=== PATIENT | male | born 1985 | race Caucasian/White ===

== ENCOUNTER 2018-05-02 03:35 | Inpatient (IN) | payer OTHER ==
[~2018-05-02] VITALS: Ht 177.8 cm; Wt 87.0 kg
[~2018-05-02 03:35] MED LIST: BUPR1 PO; Bactrim Ds Tab1 EACH PO; CEPH500 PO; Flomax0.4 MG PO; HYDACE5 PO; HYDR1TAB94 PO; IBUP600 PO; IBUP800 PO; KETO10 PO; PROM25 PO; Percocet 5-3251 EACH PO; Tylenol With C1 EACH PO; Vibramycin100 MG PO
[2018-05-02 04:17] LABS: BASOPHILS ABSOLUTE AUTO 0.03 K/mm3 (0.00-0.23); BASOPHILS PERCENT AUTO 0 % (0-2); EOSINOPHILS ABSOLUTE AUTO 0.04 K/mm3 (0.00-0.68); EOSINOPHILS PERCENT AUTO 0 % (0-6); Hemoglobin 13.9 g/dL (13.5-17.5); IMMATURE GRAN ABSOLUTE AUTO 0.08 K/mm3 (0.00-0.10); IMMATURE GRAN PERCENT AUTO 1 % (0-1); LYMPHOCYTES ABSOLUTE AUTO 3.07 K/mm3 (0.84-5.20); LYMPHOCYTES PERCENT AUTO 22 % (21-46); MONOCYTES ABSOLUTE AUTO 0.81 K/mm3 (0.16-1.47); MONOCYTES PERCENT AUTO 6 % (4-13); Mean Corpuscular HGB 29.8 pg (26.0-34.0); Mean Corpuscular HGB Conc 33.9 g/dL (31.5-36.5); Mean Corpuscular Volume 88 fL (80-100); Mean Platelet Volume 10.9 fL (9.1-12.4); NEUTROPHILS ABSOLUTE AUTO 9.76 K/mm3 (1.96-9.15); NEUTROPHILS PERCENT AUTO 71 % (41-73); Platelet Count 155 K/mm3 (150-400); RDW Coefficient Variation 13.3 % (11.7-14.2); RDW Standard Deviation 42.6 fL (35.1-46.3); Red Blood Cell Count 4.67 M/mm3 (4.30-5.90); White Blood Cell Count 13.79 K/mm3 (4.00-11.30)
[2018-05-02 04:37] LABS: Source, Urine Clean Catch
[2018-05-02 04:40] LABS: Bilirubin, Urine Neg (Neg); Blood, Urine 2+ (Neg); Glucose Qualitative, Urine Neg (Neg); Ketones, Urine Neg (Neg); Leukocyte Esterase, Urine Neg (Neg); Nitrite, Urine Neg (Neg); Protein, Urine 2+ (Neg); Urobilinogen, Urine NORM (Normal)
[2018-05-02 04:40] LABS: Alanine Aminotransfer (ALT/SGP 98 U/L (12-78); Albumin, Blood 4.2 g/dL (3.4-5.0); Albumin/Globulin Ratio 1.2 (0.8-1.8); Alk Phos 99 U/L (50-136); Anion Gap 13 mmol/L (6-16); Aspartate Aminotrans (AST/SGOT 150 U/L (12-37); Bilirubin, Total 0.8 mg/dL (0.1-1.0); Blood Urea Nitrogen 21 mg/dL (8-24); Bun/Creatinine Ratio 23.2 (12.0-20.0); CO2, Blood 26 mmol/L (21-32); Calcium, Blood 7.9 mg/dL (8.5-10.1); Chloride, Blood 103 mmol/L (98-108); Creatinine, Blood 0.91 mg/dL (0.60-1.20); Ethanol (Alcohol), Blood, Med 125 mg/dL; Globulin, Blood 3.5 g/dL (2.2-4.0); Glomerular Filtration Rate >60 (60-); Glucose, Blood 117 mg/dL (70-99); Salicylate <1.7 mg/dL (2.8-20.0); Sodium, Blood 142 mmol/L (136-145); Total Protein, Blood 7.7 g/dL (6.4-8.2)
[2018-05-02 04:46] LABS: Acetaminophen, Random <2.0 ug/mL (10.0-30.0)
[2018-05-02 04:51] LABS: U Amphetamine Screen Not Detected; U Barbituate Screen Not Detected; U Benzodiazapine Screen Not Detected; U Buprenorphine Screen DETECTED; U Cannabinoids Screen Not Detected; U Cocaine Screen Not Detected; U Methadone Screen Not Detected; U Methamphetamine Screen Not Detected; U Opiates Screen Not Detected; U Oxycodone Screen Not Detected; U Phencyclidine Screen Not Detected; U Propoxyphene Screen Not Detected
[2018-05-02 04:52] LABS: Amorphous Light (0-Heavy); Appearance, Urine Clear (Clear); Bacteria Rare /hpf; Color, Urine Yellow (P-Yellow); Red Blood Cells, Urine 0-2 /hpf (0-2); Squamous Epithelial Cells Not Seen /hpf (Few); White Blood Cells, Urine Rare /hpf (0-5)
--- NOTE | 2018-05-02 05:00 | NUR ---
ASSUMED PT CARE AT 0445 PT ARRIVED VIA STRETCHER FROM ED WITH FLUIDS INFUSING WO AND PROPOFOL INFUSING AT 30MCG/KG. VENTILATOR SETTINGS AC 16; TV 500; FIO2 30%; PEEP 5 WITH OXYGEN SATURATIONS >100%. PT COVERED HEAD TO TOE IN A RED RASH WITH SCRATCHES AND SCRAPES TO ELBOWS, KNEES, HANDS, AND FEET. PT COVERED IN DIRT WELL FROM HEAD TO TOE. IO ACCESS TO RIGHT LEG; 20G TO RIGHT UPPER ARM; AND 18G TO LEFT UPPER ARM. TRANSFERRED PT OVER TO BED USING SLIDER SHEET, HOOKED UP TO THE MONITOR, INITIATED TAKING PICTURES OF RASH TO SKIN, AND GAVE PT A COMPLETE BED BATH. PT REMAINED SEDATED AND IN BILATERAL SOFT WRIST RESTRAINTS.
--- NOTE | 2018-05-02 05:30 | NUR ---
DR. JOHNSON AT BEDSIDE TO ASSESS PT
--- NOTE | 2018-05-02 07:15 | NUR ---
END OF SHIFT SUMMARY PT HAS REMAINED INTUBATED AND SEDATED. VENT SETTINGS REMAIN AT AC16; TV 500; FIO2 30%; PEEP 5. PROPOFOL AT 30MCG/KG; NS 125MLS/HR. IV ACCESS WAS DIFFICULT TO OBTAIN; 18G TO LEFT UPPER ARM INFILTRATED; THEREFORE, THE ONLY IV ACCESS LEFT IS IO TO RIGHT LEG; AND 20G TO RIGHT UPPER ARM. REPORTED OFF TO RN THAT PT MAY NEED ORDERS FOR PICC OR CENTRAL LINE PERIPHERALS WERE DIFFICULT TO OBTAIN ACCESS AND MULITPLE ATTEMPTS WERE MADE. LUNG SOUNDS ARE COARSE/RHONCHI NOTED T/O. NSR WITH HR 60-70'S. ABDOMEN IS MILDLY DISTENDED WITH BTX4. FERNANDEZ CATH IS PATENT AND DRAINING TO GRAVITY; ЕЛЕНА, COLORED URINE. SEE CHART FOR PICTURES R/T SKIN INTEGRITY. PT IS SEDATED AND QUIET AT THIS TIME. NO SIGNS OF ACUTE DISTRESS OR DISCOMFORT.
--- NOTE | 2018-05-02 07:30 | NUR ---
ASSUMED CARE: REPORT RECEIVED FROM JASMYN Baird RN. ASSUMED CARE OF THIS PT AT APPROX 0700. UPON ENTERING THE ROOOM, THE PT IS RESTING QUIETLY, BILAT SOFT WRIST RESTRAINTS IN PLACE. DURING ASSESSMENT, THE PT BECAME INCREASINGLY MORE AGITATED. HE WAS PULLING ON RESTRAINTS & ATTEMPTING TO "COUGH OUT" HIS ETT. SEDATION INCREASED DOCUMENTED IN FLOWSHEET. PT IS NOW RESTING QUIETLY. WILL CONTINUE TO MONITOR & UPDATE NEEDED.
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
--- NOTE | 2018-05-02 10:00 | NUR ---
IV ACCESS UPDATE: POWERGLIDE PLACED AT 0945 BY DESMOND Bullard RN. IO TO RLE REMOVED AT THIS TIME. WILL CONTINUE TO MONITOR & UPDATE NEEDED.
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
--- NOTE | 2018-05-02 14:51 | NUR ---
HEAD CT & WEAN TRIAL: PT TO CT W/ THIS RN, DESMOND Bullard RN & JENELLE, RT. SEDATION IS LIGHT & THE PT IS FOLLOWING ALL COMMANDS APPROPRIATELY, HE DOES NOT ATTEMPT TO REMOVE ETT & ANSWERS YES/NO QUESTIONS W/ NODS. WEAN TRIAL ATTEMPTED AT 1450. PT INITIALLY PLACED ON PS 7 W/ PEEP OF 5. HE IS NOW ON SPONTANEOUS & TOLERATING WELL W/ O2 SATS > 95% & APPROX 16-18 RESP/MIN. WILL CONTINUE TO MONITOR & UPDATE NEEDED.
--- NOTE | 2018-05-02 15:10 | NUR ---
EXTUBATION: DR. RADER IN ROOM TO SEE PT DURING WEAN TRIAL. HE STS OKAY TO EXTUBATE PT AT THIS TIME. ORDERS PLACED. EXTUBATION AT 1507. PT PRAVEEN WELL, PLACED ON 4L NC W/ O2 SATS > 95%. HE IS SITTING UP IN THE BED & ORALLY SUCTIONING W/ JOSEYUR. O2 TITRATED DOWN TO 3L NC AT 1515. PT CONINUES TO DO WELL, HIS MOTHER, JESICA, IS AT BEDSIDE & SUPPORTIVE W/ CARE. WILL CONINUE MONITOR & UPDATE NEEDED.
[2018-05-02] MEDS ORDERED: SERT50 PO (16:33)
[2018-05-02] MEDS ORDERED: Vistaril25 MG PO (16:34)
[2018-05-02] MEDS ORDERED: HYDCOR2.5C PR (16:35)
--- NOTE | 2018-05-02 16:45 | NUR ---
PT TRIED WATER/ICE CHIPS, NOW THAT HE IS EXTUBATED AND ALERT. PT DID WELL ON THIS.
--- NOTE | 2018-05-02 18:19 | NUR ---
SHIFT SUMMARY: NO ACUTE CHANGES SINCE EXTUBATION. PT CONTINUES TO DO WELL, O2 NOW AT 2L NC W/ SATS > 92%. HE HAS BEEN CALM & COOPERATIVE, & IS TEARFUL AT TIMES WHEN TRYING TO UNDERSTAND THE EVENTS PRIOR TO ADMISSION. LS ARE SLIGHTLY COARSE AT TIMES, BUT CLEARS WELL W/ COUGHING. NSR-SB NOTED ON MONITOR, HR 50-70s. WILL D/C FERNANDEZ PRIOR TO SHIFT CHANGE. PT STS RASH COVERING BODY SURFACE IS FLARE UP OF UNDERLYING PSORIASIS. EDUCATIONAL PRINT-OUT REGARDING PSORIASIS TX HAS BEEN GIVEN TO THE PT & HE IS RESPONSIVE TO THIS. HE IS TOLERATING PO INTAKE WELL & HAS HAD NO DIFFICULTY. WILL CONTINUE TO MONITOR & REPORT OFF TO ONCOMING RN.
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
[2018-05-03 04:22] LABS: BASOPHILS ABSOLUTE AUTO 0.03 K/mm3 (0.00-0.23); BASOPHILS PERCENT AUTO 1 % (0-2); EOSINOPHILS ABSOLUTE AUTO 0.06 K/mm3 (0.00-0.68); EOSINOPHILS PERCENT AUTO 1 % (0-6); Hematocrit 34.7 % (37.0-53.0); Hemoglobin 11.4 g/dL (13.5-17.5); IMMATURE GRAN ABSOLUTE AUTO 0.01 K/mm3 (0.00-0.10); IMMATURE GRAN PERCENT AUTO 0 % (0-1); LYMPHOCYTES ABSOLUTE AUTO 1.71 K/mm3 (0.84-5.20); LYMPHOCYTES PERCENT AUTO 31 % (21-46); MONOCYTES ABSOLUTE AUTO 0.37 K/mm3 (0.16-1.47); MONOCYTES PERCENT AUTO 7 % (4-13); Mean Corpuscular HGB 29.8 pg (26.0-34.0); Mean Corpuscular HGB Conc 32.9 g/dL (31.5-36.5); Mean Platelet Volume 10.6 fL (9.1-12.4); NEUTROPHILS ABSOLUTE AUTO 3.32 K/mm3 (1.96-9.15); NEUTROPHILS PERCENT AUTO 60 % (41-73); Platelet Count 78 K/mm3 (150-400); RDW Coefficient Variation 13.8 % (11.7-14.2); RDW Standard Deviation 45.9 fL (35.1-46.3); Red Blood Cell Count 3.82 M/mm3 (4.30-5.90)
[2018-05-03 04:26] LABS: Mean Corpuscular Volume 91 fL (80-100)
[2018-05-03 04:42] LABS: Anion Gap 4 mmol/L (6-16); Blood Urea Nitrogen 12 mg/dL (8-24); Bun/Creatinine Ratio 14.5 (12.0-20.0); CO2, Blood 30 mmol/L (21-32); CPK Creatine Kinase 724 U/L (39-308); Calcium, Blood 7.6 mg/dL (8.5-10.1); Chloride, Blood 107 mmol/L (98-108); Creatinine, Blood 0.83 mg/dL (0.60-1.20); Glomerular Filtration Rate >60 (60-); Glucose, Blood 88 mg/dL (70-99); Phosphorus, Blood 2.3 mg/dL (2.5-4.9); Potassium, Blood 4.1 mmol/L (3.5-5.5); Sodium, Blood 141 mmol/L (136-145)
--- NOTE | 2018-05-03 06:06 | NUR ---
END OF SHIFT SUMMARY PT HAS SLEPT T/O SHIFT. AWAKENS EASILY. ALERT AND ORIENTED; ABLE TO COMMUNICATE NEEDS AND FOLLOWS DIRECTIONS APPROPRIATELY. PT FOUND STARING AT HANDS IN THE MIDDLE OF THE NIGHT AND WAS ASKED IF HE WAS SEEING THINGS; PT DENIED AND STATED HE JUST FELT "OUT OF IT". PT WAS ASKED HOW MUCH ALCOHOL HE CONSUMES ON A REGULAR BASIS; CLAIMS HE HASN'T DRANK IN A REALLY LONG TIME BEFORE THE OTHER NIGHT. PT WAS ALSO ASKED IF THE SUBOXONE THAT HE INGESTED WAS PRESCRIBED TO HIM AND HE STATED, "NO". VISIBLE TREMORS/SHAKINESS OBSERVED T/O SHIFT; VERY WEAK IN GENERAL, BUT ABLE TO REPOSITION SELF IN BED APPROPRIATELY. PT HAS REMAINED AFEBRILE T/O SHIFT WITH STABLE VS. HOWEVER, HE HAS BEEN IN AND OUT OF BRADYCARDIA TO NSR WITH A SINUS PAUSE NOTED AT 0545 THIS AM THAT RESUMED BACK INTO IT'S REGULAR RHYTHM; ASYMPTOMATIC. WHEN AWAKE HR WILL INCREASE TO 60'S-70'S; AND WHILE SLEEPING IT WILL REMAIN AROUND 50 WITH THE LOWEST HR BEING NOTED AT 44 THIS SHIFT. PT HAS REMAINED PLEASANT AND COOPERATIVE WITH CARE. VERY DROWSY. VOIDED X1 USING URINAL. DARK, YELLOW IN COLOR WITH A TOTAL OF 575 OUT. NS INFUSING TKO; PT HAS POWERGLIDE TO ANA MARIA; 20G AND 18G TO LONG. PT RECEIVED 250MG OF NEUTRA-PHOS THIS AM D/T PHOSPHATE LEVEL OF 2.3. APPEARS COMFORTABLE WITH NO SIGNS OF DISTRESS/DISCOMFORT NOTED. CALL LIGHT IS WITHIN REACH; ABLE TO USE APPROPRIATELY.
--- NOTE | 2018-05-03 08:43 | NUR ---
INITIAL ASSESSMENT PATIENT SLEEPING SOUNDLY UPON ENTERING ROOM. PATIENT ALERT AND ORIENTED TO ALL QUESTIONS, EXCEPT TO DATE- PATIENT IS AWARE THAT IT IS 2019. PATIENT CALM, COOPERATIVE, WITH DEPRESSED AFFECT. PATIENT AFEBRILE. PATIENT STATES THAT HE HAS SOME THROAT DISCOMFORT BUT THAT IT IS TOLERABLE AT THIS TIME. PATIENT HAS SLIGHT TREMORING- PATIENT STATES THAT THIS IS NORMAL FOR HIM SINCE THE OF HIS BROTHER. PATIENT SBA. PATIENT SATTING WELL ON RA. LUNGS CLEAR THROUGHOUT. PATIENT IN SINUS ARRHYTHMIA, HR 70S TO 80S. BP STABLE. PULSES STRONG. TRACE EDEMA NOTED IN BUES. GI WNL- PATIENT REPORTS LAST BM ON THE . PATIENT VOIDING ЕЛЕНА COLORED URINE INTO BEDSIDE URINAL. PATIENT HAS PSORIASIS ALL OVER BODY. LONG SWOLLEN IV INFILTRATED UPON INITIAL ASSESSMENT- IV REMOVED. NS INFUSING TKO. BED LOW, CALL LIGHT IN REACH. WILL CONTINUE TO MONITOR THROUGHOUT SHIFT.
--- NOTE | 2018-05-03 09:05 | NUR ---
DR. TORREZ IN TO SEE PATIENT.
[2018-05-03] MEDS ORDERED: CLON.1 PO ×2 (09:23→12:32)
[2018-05-03] MEDS ORDERED: TRIA15CR3 TOP ×2 (09:29→12:34)
[2018-05-03] MEDS ORDERED: ACET325 PO ×2 (09:30→12:31)
--- NOTE | 2018-05-03 10:16 | NUR ---
SPOKE TO DR. TORREZ, UPDATED ON PATIENT AND THAT APPOINTMENT HAS BEEN SCHEDULED THIS AFTERNOON AT 1430 AT [facility] FOR PATIENT. CALLED AND INFORMED PATIENT'S MOTHER THAT PATIENT WILL BE GETTING DISCHARGED, THAT HE HAS AN APPOINTMENT IN TOWN THIS AFTERNOON AND TO BRING SOME CLOTHES FOR PATIENT. MOTHER STATED SHE WILL BE HERE IN TIME TO HAVE HIM TO HIS APPOINTMENT.
--- NOTE | 2018-05-03 11:40 | NUR ---
PATIENT SITTING UP IN CHAIR, SPEAKING WITH FAMILY. PATIENT REMAINS CALM, COOPERATIVE, ALERT AND ORIENTED. PATIENT DENIES PAIN. VITAL SIGNS REMAIN STABLE. NO ACUTE CHANGES TO REPORT ON AT THIS TIME. WILL CONTINUE TO MONITOR.
[2018-05-03] MEDS ORDERED: HYDPAM50 PO (12:32)
[2018-05-03] MEDS ORDERED: SERT50 PO (12:33)
--- NOTE | 2018-05-03 13:21 | NUR ---
PATIENT GIVEN DISCHARGE INFORMATION AND INFORMATION FOR HIS APPOINTMENT TODAY. PATIENT STATED THAT HE UNDERSTOOD. FAMILY HERE TO WATCHMAKING TEACHER PATIENT. PATIENT DRESSED, IVS REMOVED. PATIENT ROLLED OUT TO FAMILY'S CAR IN WHEELCHAIR. DISCHARGE COMPLETE.
== END 2018-05-03 13:20 | disposition home or self-care (01) | DRG 917 ==
LOC: ER 03:35 → ICUW 04:35
PROVIDERS: Emergency Medicine; Internal Medicine Critical Care Medicine; ADMIT Internal Medicine
PROC: 0BH17EZ Insertion of Endotracheal Airway into Trachea, Via Natural or Artificial Opening (ICD-10-PCS; principal; 2018-05-02)
PROC: 5A1935Z Respiratory Ventilation, Less than 24 Consecutive Hours (ICD-10-PCS; 2018-05-02)
DX: T40.4X1A Poisoning by other synthetic narcotics, accidental (unintentional), initial encounter (principal); G92 Toxic encephalopathy; J96.90 Respiratory failure, unspecified, unspecified whether with hypoxia or hypercapnia; M62.82 Rhabdomyolysis; F10.129 Alcohol abuse with intoxication, unspecified; F15.159 Other stimulant abuse with stimulant-induced psychotic disorder, unspecified; F41.9 Anxiety disorder, unspecified; F32.9 Major depressive disorder, single episode, unspecified; I10 Essential (primary) hypertension; D69.6 Thrombocytopenia, unspecified; E83.39 Other disorders of phosphorus metabolism; L40.9 Psoriasis, unspecified; Y90.6 Blood alcohol level of 120-199 mg/100 ml; Z78.1 Physical restraint status; B19.20 Unspecified viral hepatitis C without hepatic coma; F17.210 Nicotine dependence, cigarettes, uncomplicated; F43.10 Post-traumatic stress disorder, unspecified
CPT/HCPCS: 31500; 31720; 36680; 51702; 70450; 71045; 80053; 80069; 81001; 82550; 83690; 84443; 85025; 90471; 90714; 93005; 93010; 94002; 96374; 99291-25; C1751; G0480; J0330; J0690; J1650; J3010; J3411; J3475; J7030; J7042; J7050

== ENCOUNTER → 2018-05-09 | Outpatient (CLI) | payer OTHER ==
[~2018-05-09] MED LIST changes: +ACET325 PO; +CLON.1 PO; +HYDCOR2.5C PR; +HYDPAM50 PO; +SERT50 PO; +TRIA15CR3 TOP; +Vistaril25 MG PO
[2018-05-09 18:25] LABS: BASOPHILS ABSOLUTE AUTO 0.04 K/mm3 (0.00-0.23); BASOPHILS PERCENT AUTO 0 % (0-2); EOSINOPHILS PERCENT AUTO 1 % (0-6); Hematocrit 49.3 % (37.0-53.0); Hemoglobin 16.2 g/dL (13.5-17.5); IMMATURE GRAN ABSOLUTE AUTO 0.09 K/mm3 (0.00-0.10); IMMATURE GRAN PERCENT AUTO 1 % (0-1); LYMPHOCYTES ABSOLUTE AUTO 2.23 K/mm3 (0.84-5.20); LYMPHOCYTES PERCENT AUTO 25 % (21-46); MONOCYTES ABSOLUTE AUTO 0.58 K/mm3 (0.16-1.47); MONOCYTES PERCENT AUTO 6 % (4-13); Mean Corpuscular HGB 29.9 pg (26.0-34.0); Mean Corpuscular HGB Conc 32.9 g/dL (31.5-36.5); Mean Corpuscular Volume 91 fL (80-100); Mean Platelet Volume 11.7 fL (9.1-12.4); NEUTROPHILS ABSOLUTE AUTO 5.97 K/mm3 (1.96-9.15); NEUTROPHILS PERCENT AUTO 66 % (41-73); Platelet Count 192 K/mm3 (150-400); RDW Standard Deviation 46.7 fL (35.1-46.3); Red Blood Cell Count 5.41 M/mm3 (4.30-5.90); White Blood Cell Count 9.01 K/mm3 (4.00-11.30)
[2018-05-09 18:52] LABS: Alanine Aminotransfer (ALT/SGP 135 U/L (12-78); Albumin, Blood 4.5 g/dL (3.4-5.0); Alk Phos 110 U/L (50-136); Anion Gap 8 mmol/L (6-16); Aspartate Aminotrans (AST/SGOT 78 U/L (12-37); Bilirubin, Direct 0.1 mg/dL (0.0-0.3); Bilirubin, Indirect 0.5 mg/dL (0.1-0.7); Bilirubin, Total 0.6 mg/dL (0.1-1.0); Blood Urea Nitrogen 16 mg/dL (8-24); Bun/Creatinine Ratio 18.6 (12.0-20.0); CO2, Blood 24 mmol/L (21-32); Calcium, Blood 9.5 mg/dL (8.5-10.1); Chloride, Blood 106 mmol/L (98-108); Creatinine, Blood 0.86 mg/dL (0.60-1.20); Globulin, Blood 4.7 g/dL (2.2-4.0); Glomerular Filtration Rate >60 (60-); Glucose, Blood 148 mg/dL (70-99); Potassium, Blood 4.5 mmol/L (3.5-5.5); Sodium, Blood 138 mmol/L (136-145); Total Protein, Blood 9.2 g/dL (6.4-8.2)
[2018-05-11 01:09] LABS: HBSAG SCREEN Negative (Negative); HEP A AB, IGM Negative (Negative); HEP B CORE AB, IGM Negative (Negative); HEP C VIRUS AB >11.0 (0.0-0.9); HIV SCREEN 4TH GENERATION WRFX Non Reactive (Non Reactive)
[2018-05-11 14:07] LABS: QUANTIFERON MITOGEN VALUE >10.00 IU/mL (.); QUANTIFERON NIL VALUE 0.03 IU/mL (.); QUANTIFERON TB1 AG VALUE 0.03 IU/mL (.); QUANTIFERON TB2 AG VALUE 0.03 IU/mL (.); QUANTIFERON-TB GOLD PLUS Negative (Negative)
== END ==
LOC: LAB 18:00 → LAB SHORT 18:00
PROVIDERS: Nurse Practitioner Family
DX: F41.8 Other specified anxiety disorders (principal)
CPT/HCPCS: 80053; 80074; 82248; 83036; 85025; 86480; 86592; 87389

== ENCOUNTER 2018-07-01 13:51 | Emergency (ER) | payer OTHER ==
[~2018-07-01] VITALS: Ht 177.8 cm; Wt 90.7 kg
[2018-07-01] MEDS ORDERED: Bactrim Ds Tab1 EACH PO (14:46)
[2018-07-01] MEDS ORDERED: CEPH500 PO (14:46)
== END 2018-07-01 15:14 | disposition home or self-care (01) ==
LOC: ER 13:51
DX: L02.413 Cutaneous abscess of right upper limb (principal)
CPT/HCPCS: 10060; 99283-25

== ENCOUNTER 2018-09-19 19:52 | Emergency (ER) | payer OTHER ==
[~2018-09-19] VITALS: Ht 177.8 cm; Wt 88.5 kg
[2018-09-19] MEDS ORDERED: Prednisone20 MG PO (21:54)
== END 2018-09-19 22:24 | disposition home or self-care (01) ==
LOC: ER 19:52
DX: J20.9 Acute bronchitis, unspecified (principal); F17.200 Nicotine dependence, unspecified, uncomplicated
CPT/HCPCS: 71046; 87081; 87430; 99283-25; J7512

== ENCOUNTER 2018-11-06 05:38 | Emergency (ER) | payer OTHER ==
[~2018-11-06] VITALS: Ht 177.8 cm; Wt 90.7 kg
[~2018-11-06 05:38] MED LIST changes: +Prednisone20 MG PO
[2018-11-06] MEDS ORDERED: CEPH500 PO (07:43)
[2018-11-06] MEDS ORDERED: Bactrim Ds Tab1 EACH PO (07:43)
[2018-11-06] MEDS ORDERED: IBUP600 PO (07:43)
== END 2018-11-06 07:50 | disposition home or self-care (01) ==
LOC: ER 05:38
DX: T80.89XA Other complications following infusion, transfusion and therapeutic injection, initial encounter (principal); L02.414 Cutaneous abscess of left upper limb; F19.90 Other psychoactive substance use, unspecified, uncomplicated; I10 Essential (primary) hypertension; F17.200 Nicotine dependence, unspecified, uncomplicated
CPT/HCPCS: 10060; 99283-25